=== PATIENT | male | born 1960 | race Caucasian/White ===

== ENCOUNTER 2017-07-31 20:10 | Emergency (ER) | payer OTHER ==
[~2017-07-31] VITALS: Ht 177.8 cm; Wt 113.6 kg
[2017-07-31 20:16] VITALS: BP 148/82; PULSE 69; TEMP 98
[2017-07-31] MEDS ORDERED: PRIL40 PO (20:59)
[2017-07-31] MEDS ORDERED: CILOXAN .3% EY2.5 ML OD (21:36)
== END 2017-07-31 21:44 | disposition home or self-care (01) ==
LOC: COL.ER 20:10
DX: H11.31 Conjunctival hemorrhage, right eye (principal); F17.210 Nicotine dependence, cigarettes, uncomplicated; W22.8XXA Striking against or struck by other objects, initial encounter